=== PATIENT | male | born 1955 | race Caucasian/White ===

== ENCOUNTER 2020-08-05 11:55 | Outpatient (CLI) | payer OTHER, SELFPAY ==
[2020-08-05 12:12] LABS: Basophils Absolute Auto 0.1 K/mm3 (0.0-0.1); Basophils Percent Auto 1.2 % (0.2-1.2); Eosinophils Absolute Auto 0.1 K/mm3 (0-0.3); Eosinophils Percent Auto 2.2 % (0-4.4); Hematocrit 49.4 % (42.0-52.0); Immature Granulocyte Absolute 0.02 K/mm3 (0.00-0.031); Immature Granulocyte Percent A 0.3 % (0-0.5); Lymphocytes Percent Auto 25.6 % (18.3-44.2); Mean Corpuscular HGB Conc 34.4 g/dl (32-36); Mean Corpuscular Hemoglobin 30.4 pg (26-34); Mean Corpuscular Volume 88.4 fl (80-100); Mean Platelet Volume 9.5 fl (7.4-10.4); Monocytes Absolute Auto 0.6 K/mm3 (0.1-0.6); Monocytes Percent Auto 9.7 % (2.6-8.5); Neutrophils Absolute Auto 3.6 K/mm3 (1.3-6.7); Platelet Count Result 242 k/mm3 (150-375); Red Blood Count 5.59 M/mm3 (4.6-6.20); Red Cell Distribution Width 13.3 % (11.5-14.5); White Blood Count 5.9 K/mm3 (4.5-10.0)
[2020-08-05 12:24] LABS: Alanine Aminotransferase 69 U/L (4-50); Albumin Level 4.4 g/dL (3.5-5.1); Alkaline Phosphatase 65 U/L (38-126); Anion Gap 6 mmol/L (8-16); Aspartate Amino Transferase 22 U/L (17-59); Bilirubin,Total 1.2 mg/dL (0.2-1.3); Blood Urea Nitrogen 15 mg/dL (9-20); Calcium 9.5 mg/dL (8.4-10.2); Carbon Dioxide 32 mmol/L (22-30); Chloride 102 mmol/L (98-107); Cholesterol 174 mg/dL (0-200); Estimated Glomerular Filt Rate > 60; Glucose 106 mg/dL (75-110); HDL Direct 54 mg/dL; Potassium 4.5 mmol/L (3.4-5.0); Sodium 140 mmol/L (137-145); Triglycerides 96 mg/dL (<150)
[2020-08-05 12:35] LABS: LDL Cholesterol Direct 103 mg/dL
[2020-08-05 12:54] LABS: Prostate Specific Antigen 3.6 ng/mL (< OR = 4.0)
== END 2020-08-05 11:56 | disposition home or self-care (01) ==
LOC: ANHLAB 11:57
PROVIDERS: PCP Internal Medicine; Visit Provider Internal Medicine
DX: Z00.00 Encounter for general adult medical examination without abnormal findings (principal)
CPT/HCPCS: 36415; 80053; 80061; 84153; 84443; 85025; G0103

== ENCOUNTER 2021-06-17 01:00 | Day surgery (SDC) | payer OTHER, SELFPAY ==
[2021-06-03 12:13] VITALS: BMI 26.6
--- NOTE | 2021-06-16 14:06 | WPDANESEPPF ---
Anes - Initial Pre Proc Eval Procedure: Operation Date: 06/17/21 07:30 Proposed Procedures p Esophagogastroduodenoscopy & Screening Colonoscopy - Jamin Schafer MD Date/Time: 06/16/21 14:06 Surgeon: Jamin Schafer MD Pre Op Diagnosis: GERD Patient Data Age: 65 Gender: M Height: 1.75 m Weight: 82 kg Allergies Allergy/AdvReac Type Severity Reaction Status Date / Time No Known Allergies Allergy Verified 06/17/21 06:28 Home Medications Medication Instructions Recorded Confirmed Type pantoprazole 40 mg tablet,delayed 40 mg PO QAM #90 tablet 12/22/20 06/03/21 Rx release nebivolol 5 mg tablet 5 mg PO DAILY #90 tablet 01/12/21 06/03/21 Rx alprazolam 1 mg tablet 1.5 mg PO .hs PRN #135 tablet 03/21/21 06/03/21 Rx bupropion HCl 150 mg 24 hr tablet, 150 mg PO QAM #90 tablet 05/17/21 06/03/21 Rx extended release Patient hx anesthesia problems: none Family hx anesthesia problems: none Results Review: All pre-operative results and documents have been reviewed as part of the pre-operative evaluation. COUNTS INCLUDE 234 BEDS AT THE [facility] Past Medical History Medical History (Updated 06/16/21 @ 14:06 by Blake Dunlap DO) Closed head injury Depression Surgical History Surgical History H/O adenoidectomy History of cholecystectomy Hx of appendectomy Hx of tonsillectomy Family History Family History Mother Family history of thyroid disease Diabetes mellitus Hypertension Patient's mother is in good health Father Patient's father is Family history of Alzheimer's disease Grandparent Carcinoma of colon Social History Social History Smoking status: Never smoker Alcohol intake: current Drinks per week: 3 Living arrangements: with family Spiritual care concerns: No Anes - Eval Final PreProcedure Day of Procedure 06/16/21 14:06 Patient weight: overweight Heart: regular rate and rhythm Lungs: clear to auscultation and normal air movement Airway: Mallampati scale class II Neurological: alert and oriented Last oral intake: >/= 8 hours ASA classification: II Emergent: no Anesthetic plan: proceed Anesthesia type and monitoring: general GIVS and standard monitoring Results Review: All pre-operative results and documents have been reviewed as part of the pre-operative evaluation. Informed Consent: The patient's anesthetic plan and its attendant risks and benefits were discussed with the patient/family/POA. Questions were solicited and answers provided to the satisfaction of the patient/family/POA.
[2021-06-17 06:29] VITALS: BP 149/87; PULSE 65; RESP 18; TEMP 36.7; O2SAT 100
[2021-06-17] MEDS: LACTATED RINGERS 1,000 ML 150 ML IV CONT (06:36)
--- NOTE | 2021-06-17 07:24 | PM.HPGS ---
History of Present Illness History of Present Illness Consent: Risks, benefits, and alternatives have been discussed and questions answered. Patient agrees to proceed with procedure. Chief complaint: GERD Narrative: Jose Nichole is a 65 year old male here with gerd controlled on protonix, last colonoscopy 2014 (grandparent with colon cancer at age 53) Review of Systems Constitutional: Constitutional: Denies headache(s) and Denies weakness Eyes: Eyes: Denies blurry vision ENT: Reports Normal hearing present, Denies headache(s) and Denies neck pain Cardiovascular: Cardiovascular: Denies chest pain and Denies dyspnea Respiratory: Respiratory: Denies dyspnea Gastrointestinal: Gastrointestinal: Reports no additional gastrointestinal complaints Genitourinary: Genitourinary: Denies dysuria Musculoskeletal: Musculoskeletal: Denies neck pain Integumentary/Breasts: Skin/Breast: Denies dry skin Neurologic: Reports Normal hearing present, Denies headache(s) and Denies weakness Psychiatric: Psychiatric: Denies anxiety Endocrine: Endocrine: Denies change in body appearance Hematologic/Lymphatic: Hematologic/Lymphatic: Denies easy bleeding Allergic/Immunologic: Allergic/Immunologic: Denies urticaria PMFSH Past Medical History Medical History (Updated 06/17/21 @ 07:24 by Jamin Schafer MD) Closed head injury Depression GERD (gastroesophageal reflux disease) Surgical History Surgical History H/O adenoidectomy History of cholecystectomy Hx of appendectomy Hx of tonsillectomy Family History Family History Mother Family history of thyroid disease Diabetes mellitus Hypertension Patient's mother is in good health Father Patient's father is Family history of Alzheimer's disease Grandparent Carcinoma of colon Social History Social History Smoking status: Never smoker Alcohol intake: current Drinks per week: 3 Living arrangements: with family Spiritual care concerns: No Meds Home Medications and Allergies Home Medications Medication Instructions Recorded Confirmed Type pantoprazole 40 mg tablet,delayed 40 mg PO QAM #90 tablet 12/22/20 06/03/21 Rx release nebivolol 5 mg tablet 5 mg PO DAILY #90 tablet 06/28/21 11/17/21 Rx alprazolam 1 mg tablet 1.5 mg PO .hs PRN #135 tablet 03/21/21 06/03/21 Rx bupropion HCl 150 mg 24 hr tablet, 150 mg PO QAM #90 tablet 05/17/21 06/03/21 Rx extended release Allergies Allergy/AdvReac Type Severity Reaction Status Date / Time No Known Allergies Allergy Verified 06/17/21 06:28 Vital Signs Vital Signs - 24 hr 06/17/21 06:29 Temperature 98.1 F Pulse Rate 65 Respiratory Rate 18 Blood Pressure 149/87 H Pulse Oximetry 100 Exam Const: General: comfortable and no acute distress HENMT: General nose exam: Normal nares present Eyes: General: appearance normal, both eyes and all related structures Neck: Neck: no JVD Resp: Auscultation: clear to auscultation bilaterally Cardio: Rate: regular rate Rhythm: regular rhythm GI: Inspection: non-distended GI Palp: Yes Soft to palpation Skin: General skin exam: normal color Neuro: General: gait normal Speech: normal speech Extrem: General: normal to inspection Psych: Mental Status: mental status grossly normal Assessment and Plan Assessment and plan (1) Family hx of colon cancer: Code(s): Z80.0 - Family history of malignant neoplasm of digestive organs Status: Acute Assessment and Plan: colonoscopy (2) GERD (gastroesophageal reflux disease): Code(s): K21.9 - Gastro-esophageal reflux disease without esophagitis Status: Acute Assessment and Plan: egd with bx, already on ppi
--- NOTE | 2021-06-17 07:55 | SUR.OPER ---
EGD: 3334 to 1110 Colon 4130 to 9335
[2021-06-17 07:57] VITALS: BP 114/73; PULSE 70; RESP 19; O2SAT 97
[2021-06-17 08:07] VITALS: BP 107/74; PULSE 75; RESP 33; O2SAT 97
[2021-06-17 08:17] VITALS: BP 132/89; PULSE 63; RESP 21; O2SAT 97
== END 2021-06-17 08:30 | disposition home or self-care (01) ==
PROVIDERS: PCP Internal Medicine; Visit Provider Internal Medicine Gastroenterology
PROC: 0DJ08ZZ Inspection of Upper Intestinal Tract, Via Natural or Artificial Opening Endoscopic (ICD-10-PCS; CPT 43235; principal; 2021-06-17 07:30)
DX: Z12.11 Encounter for screening for malignant neoplasm of colon (principal); K63.5 Polyp of colon; K57.30 Diverticulosis of large intestine without perforation or abscess without bleeding; K64.8 Other hemorrhoids; K31.7 Polyp of stomach and duodenum; K21.9 Gastro-esophageal reflux disease without esophagitis; K44.9 Diaphragmatic hernia without obstruction or gangrene; Z80.0 Family history of malignant neoplasm of digestive organs; F32.9 Major depressive disorder, single episode, unspecified
CPT/HCPCS: 45385; 43239; 88305; J2704; J7120

== ENCOUNTER 2021-09-29 16:22 | Outpatient (CLI) | payer OTHER, SELFPAY ==
[2021-09-29 16:40] LABS: Basophils Absolute Auto 0.1 K/mm3 (0.0-0.1); Basophils Percent Auto 0.9 % (0.2-1.2); Eosinophils Absolute Auto 0.1 K/mm3 (0-0.3); Eosinophils Percent Auto 1.5 % (0-4.4); Hemoglobin 15.4 g/dL (14.0-18.0); Immature Granulocyte Absolute 0.01 K/mm3 (0.00-0.031); Immature Granulocyte Percent A 0.2 % (0-0.5); Lymphocytes Absolute Auto 1.44 K/mm3 (0.9-3.2); Lymphocytes Percent Auto 26.3 % (18.3-44.2); Mean Corpuscular Hemoglobin 31.4 pg (26-34); Mean Corpuscular Volume 89.8 fl (80-100); Mean Platelet Volume 9.6 fl (7.4-10.4); Monocytes Absolute Auto 0.5 K/mm3 (0.1-0.6); Monocytes Percent Auto 9.3 % (2.6-8.5); Neutrophils Absolute Auto 3.4 K/mm3 (1.3-6.7); Neutrophils Percent Auto 61.8 % (45.5-73.1); Platelet Count Result 221 k/mm3 (150-375); Red Cell Distribution Width 12.6 % (11.5-14.5); White Blood Count 5.5 K/mm3 (4.5-10.0)
[2021-09-29 16:51] LABS: Alanine Aminotransferase 23 U/L (4-50); Albumin Level 4.5 g/dL (3.5-5.1); Alkaline Phosphatase 63 U/L (38-126); Anion Gap 6 mmol/L (8-16); Aspartate Amino Transferase 17 U/L (17-59); Bilirubin,Total 1.4 mg/dL (0.2-1.3); Blood Urea Nitrogen 15 mg/dL (9-20); Carbon Dioxide 32 mmol/L (22-30); Chloride 102 mmol/L (98-107); Cholesterol 148 mg/dL (0-200); Estimated Glomerular Filt Rate > 60; Glucose 98 mg/dL (65-110); HDL Direct 45 mg/dL; Sodium 140 mmol/L (137-145); Triglycerides 77 mg/dL (<150)
[2021-09-29 17:01] LABS: LDL Cholesterol Direct 80 mg/dL
[2021-09-29 17:09] LABS: Hemoglobin A1C 5.1 % (<5.7)
[2021-09-29 17:22] LABS: Prostate Specific Antigen 2.4 ng/mL (< OR = 4.0)
[2021-09-29 17:57] LABS: Folic Acid 12.6 ng/mL (2.76->20)
== END 2021-09-29 16:23 | disposition home or self-care (01) ==
LOC: ANHLAB 16:24
PROVIDERS: PCP Physician Assistant; Visit Provider Internal Medicine
DX: Z12.5 Encounter for screening for malignant neoplasm of prostate (principal); R53.83 Other fatigue; Z00.00 Encounter for general adult medical examination without abnormal findings
CPT/HCPCS: 36415; 80053; 80061; 82607; 82746; 83036; 84153; 84443; 85025; G0103

== ENCOUNTER 2023-08-17 16:29 | Outpatient (CLI) | payer BC, SELFPAY ==
[2023-08-17 19:15] LABS: Alanine Aminotransferase 49 U/L (6-50); Albumin Level 4.6 g/dL (3.5-5.1); Alkaline Phosphatase 56 U/L (38-126); Anion Gap 8 mmol/L (8-16); Aspartate Amino Transferase 18 U/L (17-59); Bilirubin,Total 1.1 mg/dL (0.2-1.3); Blood Urea Nitrogen 24 mg/dL (9-20); Calcium 9.5 mg/dL (8.4-10.2); Carbon Dioxide 30 mmol/L (22-30); Chloride 100 mmol/L (98-107); Estimated Glomerular Filt Rate > 60; Glucose 100 mg/dL (65-110); Potassium 4.6 mmol/L (3.4-5.0); Sodium 138 mmol/L (137-145)
[2023-08-17 19:46] LABS: Prostate Specific Antigen 2.7 ng/mL (< OR = 4.0)
[2023-08-17 21:15] LABS: Hemoglobin A1C 5.8 % (<5.7)
== END 2023-08-17 16:30 | disposition home or self-care (01) ==
LOC: ANHLAB 16:32
PROVIDERS: PCP Physician Assistant; Visit Provider Physician Assistant
DX: R73.9 Hyperglycemia, unspecified (principal); Z12.5 Encounter for screening for malignant neoplasm of prostate
CPT/HCPCS: 36415; 80053; 83036; 84153; G0103

== ENCOUNTER 2024-12-13 08:11 | Outpatient (CLI) | payer OTHER, SELFPAY ==
[2024-12-13 09:23] LABS: Hematocrit 45.9 % (42.0-52.0); Hemoglobin 15.4 g/dL (14.0-18.0); Mean Corpuscular HGB Conc 33.6 g/dl (32-36); Mean Corpuscular Hemoglobin 30.1 pg (26-34); Mean Corpuscular Volume 89.8 fl (80-100); Mean Platelet Volume 10.2 fl (7.4-10.4); Platelet Count Result 237 k/mm3 (150-375); Red Blood Count 5.11 M/mm3 (4.6-6.20); Red Cell Distribution Width 12.9 % (11.5-14.5); White Blood Count 5.3 K/mm3 (4.5-10.0)
[2024-12-13 10:12] LABS: Alanine Aminotransferase 63 U/L (6-50); Albumin Level 4.3 g/dL (3.5-5.1); Alkaline Phosphatase 54 U/L (38-126); Anion Gap 6 mmol/L (4-12); Aspartate Amino Transferase 22 U/L (17-59); Bilirubin,Total 1.1 mg/dL (0.2-1.3); Blood Urea Nitrogen 18 mg/dL (9-20); Calcium 9.4 mg/dL (8.4-10.2); Carbon Dioxide 30 mmol/L (22-30); Chloride 104 mmol/L (98-107); Cholesterol 178 mg/dL (0-200); Estimated Glomerular Filt Rate > 60; Glucose 112 mg/dL (65-110); HDL Direct 46 mg/dL; Potassium 4.4 mmol/L (3.4-5.0); Sodium 140 mmol/L (137-145); Triglycerides 88 mg/dL (<150)
[2024-12-13 10:24] LABS: LDL Cholesterol Direct 100 mg/dL
[2024-12-13 10:47] LABS: Prostate Specific Antigen 3.2 ng/mL (< OR = 4.0)
[2024-12-13 12:15] LABS: Hemoglobin A1C 5.5 % (<5.7)
== END 2024-12-13 08:12 | disposition home or self-care (01) ==
LOC: ANHLAB 08:13
PROVIDERS: PCP Nurse Practitioner; Visit Provider Nurse Practitioner
DX: Z00.00 Encounter for general adult medical examination without abnormal findings (principal); R53.83 Other fatigue; R73.9 Hyperglycemia, unspecified; K21.9 Gastro-esophageal reflux disease without esophagitis; Z12.5 Encounter for screening for malignant neoplasm of prostate
CPT/HCPCS: 36415; 80053; 80061; 83036; 84153; 84443; 85027; G0103

== ENCOUNTER 2025-04-22 02:55 | Emergency (ER) | payer OTHER, SELFPAY ==
[2025-04-22 03:02] VITALS: BP 145/92; PULSE 80; RESP 17; TEMP 36.7; O2SAT 99
--- OUTSIDE RECORDS SUMMARY | 2025-04-22 05:18 | XMS_ITS | Clinical Summary ---
Author Organization [facility] [employer] Address [address] [place] [address] Care Team Providers Care Air Conditioning Specialist Name Role Phone Unavailable Primary Care Provider Unavailabl e Source Comments [facility] [employer],non-owned Affiliates and Associated Physician Practices is amultiple site organization consisting of ambulatory clinics and hospital sitesin [place], [place] and [place]. This disclosure is being madepursuant to the Care Everywhere program and may not contain all information available regarding this patient. Last updated 18.[facility] [employer] Allergies No known active allergies Medications * Be aware that medications may not be up to date on this document. Alwaysverify current medications with the patient. raNITIdine (ZANTAC 150 MAXIMUM STRENGTH) 150 MG tablet Take 150 mg by mouth 2 times daily Active Social History Tobacco Use Types Packs/Day Years Used Date Smoking Tobacco: Never Smokeless Tobacco: Never Alcohol Use Standard Drinks/Week Comments Yes 0 (1 standard drink = 0.6 oz pur e alcohol) Socially Sex and Gender Information Value Date Recorded Sex Assigned at Not on file Legal Sex Male 4:19 PM CDT Gender Identity Not on file Sexual Orientation Not on file Last Filed Vital Signs Vital Sign Reading Time Taken Comments Blood Pressure 139/81 06/02/2018 11:06 AM APPLICATION TECHNICIAN Pulse 87 06/02/2018 11:06 AM APPLICATION TECHNICIAN Temperature 36.6 C (97.9 F) 06/02/2018 11:06 AM APPLICATION TECHNICIAN Respiratory Rate - - Oxygen Saturation 96% 06/02/2018 11:06 AM APPLICATION TECHNICIAN Inhaled Oxygen Concentration - - Weight 89.4 kg (197 lb) 06/02/2018 11:06 AM APPLICATION TECHNICIAN Height 175.3 cm (5' 9) 06/02/2018 11:06 AM APPLICATION TECHNICIAN Body Mass Index 29.09 06/02/2018 11:06 AM APPLICATION TECHNICIAN Plan of Treatment Health Maintenance Due Date Last Done Comments COLOGUARD (AGES 45-75) - COL ON CA SCREENING 1957 COLON MONITORING 1957 COLONOSCOPY - COLON CA SCREENING 1957 CT COLONOGRAPHY - COLON CA SCREENING 1957 Colorectal Cancer Screening 1957 FIT - COLON CA SCREENING 1957 FLEX SIG - COLON CA SCREENING 1957 LIPID TESTING 1957 HEPATITIS C SCREENING 07/10/1975 DTAP/TDAP/TD VACCINES (1 - Tdap) 1976 PNEUMOCOCCAL VACCINE 50+ (1 of 1 - PCV) 2007 ZOSTER VACCINE (1 of 2) 2007 SCREENING FOR DIABETES 06/02/2018 DEPRESSION SCREENING 07/18/2024 COVID-19 VACCINE (1 - 2023-2 5 season) 2025 INFLUENZA VACCINE (#1) 2025 Respiratory Syncytial Virus (RSV) Vaccine Pt: or over 60 yrs (1 - 1-dose 75+ series) 2032 HEPATITIS B VACCINE Aged Out No longe r eligible based on patient's age to complete this topic HIB VACCINE Aged Out No longer eligi ble based on patient's age to complete this topic HPV VACCINE Aged Out No longer eligi ble based on patient's age to complete this topic MENINGOCOCCAL (Group B) VACC INE SHARED DECISION-MAKING Aged Out No longer eligibl e based on patient's age to complete this topic MENINGOCOCCAL GROUPS A/C/Y/W VACCINE Aged Out No longer eligible b ased on patient's age to complete this topic Insurance [facility]
--- NOTE | 2025-04-22 05:45 | ED_ITS ---
HPI - Eye Problem General Chief complaint: Eye Problems Stated complaint: right eye injury Time Seen by Provider: 04/22/25 05:12 Source: patient and family () Mode of arrival: ambulatory Limitations: no limitations History of Present Illness HPI Narrative: Patient presents with concern for right eye injury. While in bed rolled over and accidentally poked/scraped/scratched by . History of corneal erosion in this eye. Pain 6/10 in severity. Has had watery drainage since. Wears glasses but not contact lenses. Unable to fall asleep due to pain. Complaining of swelling and redness. Does not currently have an dialysis equipment technician/annual giving director for follow up although thinks could probably see Dr Pack. No purulent discharge. Related Data Allergies Allergy/AdvReac Type Severity Reaction Status Date / Time No Known Allergies Allergy Verified 04/22/25 03:07 PMF Past Medical History Medical History (Updated 04/23/25 @ 16:21 by Beba Bess MD) Wears glasses GERD (gastroesophageal reflux disease) Depression Closed head injury Surgical History Surgical History History of cholecystectomy H/O adenoidectomy Hx of tonsillectomy Hx of appendectomy Family History Family History Mother Family history of thyroid disease Diabetes mellitus Hypertension Patient's mother is in good health Father Patient's father is Family history of Alzheimer's disease Grandparent Carcinoma of colon Social History Social History (Updated 04/23/25 @ 16:28 by Beba Bess MD) Smoking status: Never smoker Alcohol intake: current Drinks per week: 3 Living arrangements: with family 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 EYES: Right eye mildly injected, non icteric. Normal fluorescein exam Visual acuity per RN OD 20/100; OS 20/20 with corrective lenses (glasses) Pupils equally reactive Extraocular movements intact Slit-lamp examination does show a 2mm corneal abrasion directly overlying pupil. No hyphema Increased lacrimation, clear drainage Experiences relief with tetracaine drops ENT: No epistaxis. Gross auditory acuity intact. NECK: Supple. No meningismus. CHEST: Speaking in full sentences. No respiratory distress. HEART: Regular rate. . ABDOMEN: Soft, nondistended. EXTREMITIES: Normal range of motion. No lower extremity edema. SKIN: Warm, dry, no rash. NEURO: No focal deficits. Alert and oriented. Answering questions. Following commands. Normal speech without aphasia or dysarthria. PSYCH: Normal mood and affect. Course Vital Signs Vital signs: Vital Signs Temperature 98.0 F 04/22/25 03:02 Pulse Rate 80 04/22/25 03:02 Respiratory Rate 17 04/22/25 03:02 Blood Pressure 145/92 H 04/22/25 03:02 Pulse Oximetry 99 04/22/25 03:02 Oxygen Delivery Room Air 04/22/25 03:02 Temperature 98.0 F 04/22/25 03:02 Pulse Rate 80 04/22/25 03:02 Respiratory Rate 17 04/22/25 03:02 Blood Pressure 145/92 H 04/22/25 03:02 Pulse Oximetry 99 04/22/25 03:02 Oxygen Delivery Room Air 04/22/25 03:02 MDM - Eye Problem MDM Narrative Medical decision making narrative: Patient presents with right eye pain after accidentally poked/scraped/scratched in the eye by bed partner while sleeping. Wears glasses at baseline but not contact lenses. In the emergency department is afebrile with acceptable vital signs, mild hypertension. Corneal abrasion on slit lamp with relief of symptoms after tetracaine drops instilled which corroborates. Advised on care and provided prescriptions. Encouraged follow up in 48 hours for repeat exam by dialysis equipment technician/opthalmologist. Stable for discharge. Differential Diagnosis Differential diagnosis: Likely corneal abrasion, conjunctivitis, acute iritis, hyphema, subconjunctival hemorrhage and corneal ulcer Discharge Plan Discharge Clinical Impression: Corneal abrasion, right Patient Disposition: Home Condition: Stable Instructions: Antibiotic Form, Corneal Abrasion (DC), Narcotic Safety (ED) Additional Instructions: As we discussed, use the combination of medications as prescribed. The nonmedicated eyedrops can be placed in the refrigerator for extra cooling affect. Recommend follow-up with an dialysis equipment technician or annual giving director in 48 hours common most injuries heal over the course of 48-72 hours. Return to the emergency department any new or worsening symptoms. Acetaminophen/Tylenol (maximum 4000 mg per day) is safe to take with NSAIDs (ibuprofen/Motrin) for pain relief though the NSAIDs are typically preferential for this type of injury. Because these injuries are notoriously painful, For breakthrough pain, a short course of opiate/narcotic medications has been prescribed. Patches not routinely recommended and can prolong healing time. Patient Language: Ukrainian Prescriptions: New erythromycin 5 mg/gram (0.5 %) ointment 1 applic RIGHT EYE QID 5 Days Qty: 3.5 0RF oxycodone 5 mg tablet 5 mg PO Q8H PRN (Reason: pain) Qty: 5 0RF cyclopentolate 1 % drops 1 drp RIGHT EYE QID Qty: 15 0RF (DME) Sensitive Eyes Plus Saline Solution See Rx Instructions .Route Qty: 355 0RF Rx Instructions: As directed No Action alprazolam 1 mg tablet 1.5 mg PO .hs PRN (Reason: sleep) Qty: 135 0RF pantoprazole 40 mg tablet,delayed release (DR/EC) 40 mg PO QAM Qty: 90 3RF bupropion HCl 150 mg tablet extended release 24 hr 150 mg PO QAM Qty: 90 3RF ramelteon [Rozerem] 8 mg tablet 8 mg PO QHS PRN (Reason: sleep) Qty: 30 4RF Bystolic 5 mg tablet 5 mg PO DAILY Qty: 90 3RF Follow-up/Referrals: Wade Perkins [Outside] Wade Jenkins [Outside] Darien Benavidez APRN [Primary Care Provider, Internal Medicine] Stand Alone Forms: Work/School Release IP Time of Disposition: 06:05
[2025-04-22] MEDS: ERYTHROMYCIN OPHTH OINTMENT 1 GM TUBE 1 APPLIC RIGHT EYE (06:16)
== END 2025-04-22 06:47 | disposition home or self-care (01) ==
PROVIDERS: Emergency Provider Student in an Organized Health Care Education/Training Program; PCP Nurse Practitioner
DX: S05.01XA Injury of conjunctiva and corneal abrasion without foreign body, right eye, initial encounter (principal); K21.9 Gastro-esophageal reflux disease without esophagitis; F32.A Depression, unspecified; Z90.49 Acquired absence of other specified parts of digestive tract; Z79.899 Other long term (current) drug therapy; W51.XXXA Accidental striking against or bumped into by another person, initial encounter
CPT/HCPCS: 99283; A9270